=== PATIENT | male | born 1995 | race Two or more races ===

== ENCOUNTER → 2017-03-07 | Outpatient (CLI) | payer OTHER ==
[~2017-03-07] MED LIST: BACT800T5 PO; PERCOCET PO
[2017-03-07 14:51] LABS: MEAN CORPUSCULAR HEMOGLOBIN 29.5 pg (27.0-33.0); MEAN CORPUSCULAR HGB CONC 33.8 g/dl (32.0-36.5); MEAN CORPUSCULAR VOLUME 87.3 fl (80.0-96.0); RED CELL DISTRIBUTION WIDTH 14.1 % (11.5-14.5); WHITE BLOOD COUNT 6.1 K/mm3 (4.0-10.0)
[2017-03-07 14:59] LABS: INR 1.03
[2017-03-07 15:01] LABS: ANION GAP 4 MEQ/L (8-16); BLOOD UREA NITROGEN 11 MG/DL (7-18); CALCIUM LEVEL 8.8 MG/DL (8.5-10.1); CARBON DIOXIDE LEVEL 32 MEQ/L (21-32); CHLORIDE LEVEL 106 MEQ/L (98-107); CREATININE FOR GFR 0.84 MG/DL (0.70-1.30); GLOMERULAR FILTRATION RATE > 60.0 (>60); GLUCOSE, FASTING 72 MG/DL (70-105); POTASSIUM SERUM 3.9 MEQ/L (3.5-5.1); SODIUM LEVEL 142 MEQ/L (136-145)
== END ==
LOC: M SMT 09:37
PROVIDERS: ATTEND Nurse Practitioner Women's Health
DX: Z01.818 Encounter for other preprocedural examination (principal); N47.1 Phimosis
CPT/HCPCS: 36415; 80048; 85027; 85610; 85730; G0463

== ENCOUNTER → 2017-04-26 | Day surgery (SDC) | payer OTHER ==
[~2017-04-26] VITALS: Ht 172.7 cm; Wt 83.9 kg
[~2017-04-26] MED LIST changes: +BACITRACIN OINT 30GM As Ordered ONE; +BACTRIM 160MG/800MG DS TAB PO SCH; +BUPIVACAINE HCL 0.25% 30 ML VIAL As Ordered ONE; +LIDOCAINE 1% SDV 5 ML VIAL SQ PRN; +LIDOCAINE 1% SDV INJ 30 ML VIAL As Ordered ONE; +LIDOCAINE 2% INJ 100 MG/5 ML SDV (FOR ANES.) As Ordered ONE; +LR 1,000 ML IV ONE; +LR 1,000 ML IV SCH; +ONDANSETRON 4MG/2ML VIAL (J2405) As Ordered ONE; +ONDANSETRON 4MG/2ML VIAL (J2405) IV PRN; +PERCOCET 5MG/325MG TAB As Ordered ONE; +PERCOCET 5MG/325MG TAB PO PRN; +PROPOFOL 200 MG/20 ML VIAL As Ordered ONE; +dexameTHASONE 4 MG/ML 1ML VIAL (J1100) As Ordered ONE; +fentaNYL 250 MCG/5 ML INJECTION (J3010) As Ordered ONE
[2017-04-26] MEDS: PERCOCET 5MG/325MG TAB PO PRN ×2 (19:10→19:58)
[2017-04-26 20:20] VITALS: BP 127/82
--- NOTE | 2017-04-27 08:33 | RO ---
DATE OF PROCEDURE: 04/26/2017 PREPROCEDURE DIAGNOSIS: Phimosis. POSTPROCEDURE DIAGNOSIS: Phimosis. PROCEDURE: Circumcision. SURGEON: Dr. Jamaal Phillips SUBSTATION OPERATOR CHIEF: None. ANESTHESIA: General. COMPLICATIONS: None. ESTIMATED BLOOD LOSS: N/A. HISTORY OF PRESENT ILLNESS: 22-year-old male patient with phimosis. He has consented for circumcision. DESCRIPTION OF PROCEDURE: The patient under general anesthesia in supine position after prepped and draped the area of concern which included the entire genitalia and abdomen. We started by doing a penile block with Marcaine0.25% and lidocaine 1% for a total of 10 mL in the base of the penis. We then proceeded to do an incision 1 cm away from the sulcus of the glans, circumferential incision with a cold knife 15-blade. Another incision 4 cm proximal to the toward the base was done in a circumferential fashion. We then proceeded to cut this foreskin between the two incisions. The then secured hemostasis with electrocautery and then proceeded to pull back together, both edges of the skin with catgut chromic #3-0 in several stitches. We then proceeded to place bacitracin cream, wrap the penis with a 4 x 4 and a Coban. PLAN: The patient will go home today with Bactrim double strength, one tablet by mouth twice a day for 10 days and also Percocet for pain. He will followup at [facility] in about 3 to 5 days for removal of the Coban. He cannot carry heavy lifting above 20 pounds. He can be out of work for 10 days. No sex for one month. He can shower in 3 days. No sitz bath. There were no complications. The foreskin was sent for permanent pathology analysis.
== END | disposition home or self-care (01) ==
LOC: M SDC 08:29
PROVIDERS: ATTEND Urology
DX: N47.1 Phimosis (principal); F17.210 Nicotine dependence, cigarettes, uncomplicated
CPT/HCPCS: 54161; 88304; J0690; J1100; J2405; J3010

== ENCOUNTER → 2018-06-18 | Outpatient (REF) | payer OTHER ==
[2018-06-18 13:44] LABS: APPEARANCE, URINE CLEAR (CLEAR); BACTERIA, URINE AUTO NEGATIVE (NEGATIVE); BILIRUBIN, URINE AUTO NEGATIVE (NEGATIVE); BLOOD, URINE BLOOD 1+ (NEGATIVE); CALCIUM OXALATE CRYSTALS SMALL; COLOR, URINE YELLOW (YELLOW); GLUCOSE, URINE (UA) AUTO NEGATIVE (NEGATIVE); KETONE, URINE AUTO NEGATIVE (NEGATIVE); LEUKOCYTE ESTERASE, URINE AUTO NEGATIVE (NEGATIVE); MUCUS, URINE SMALL (NEGATIVE); NITRITE, URINE AUTO NEGATIVE (NEGATIVE); PROTEIN, URINE AUTO NEGATIVE (NEGATIVE); RBC, URINE AUTO 2 /HPF (0-3); SQUAMOUS EPITHELIAL CELL UR AU 0 /HPF (0-6); UROBILINOGEN, URINE AUTO 0.2 mg/dL (0.0-2.0); WBC, URINE AUTO 0 /HPF (0-3)
== END ==
LOC: M SMT 13:25
DX: R31.29 Other microscopic hematuria (principal)